=== PATIENT | female | born 1950 | race Caucasian/White ===

== ENCOUNTER 2020-03-24 09:21 | Outpatient (CLI) | payer MEDICARE, BC, SELFPAY ==
[2020-03-24 09:30] VITALS: BMI 25.8
--- NOTE | 2020-03-24 10:13 | ECG_ITS ---
NAME OF STUDY: LEXISCAN SESTAMIBI STRESS TEST INDICATION: Chest Pain; Chest Pressure PROCEDURE: At the baseline, the blood pressure was 150/86 mmHg with a heart rate of 79 bpm. The electrocardiogram showed normal sinus rhythm, leftward axis. Poor anterior R wave progression. The Lexiscan was infused over a period of 20 seconds. A total of 0.4 milligrams of Lexiscan was infused. The stress phase was continued for a total of 5 minutes. Heart rate at the end of the stress phase was 76 bpm with a blood pressure 151/84 mmHg. The EKG at the peak infusion revealed sinus rhythm with no significant ST-T wave changes. Sestamibi was injected 20 seconds after the Lexiscan infusion. Blood pressure at the end of the recovery phase was 145/75 mmHg with a heart rate of 73 beats per minute. CONCLUSION: 1. No significant EKG changes with the LexiScan infusion. 2. No LexiScan induced chest pain or cardiac arrhythmia. 3. Normal blood pressure and heart rate response. 4. Sestamibi/sestamibi perfusion scan pending; see separate report. Electronically Signed On 03-28-2020 9:47:17 CDT by Yareli Camara M.D. [id number]
--- NOTE | 2020-03-24 10:14 | NMCV_ITS ---
NM blaire perf SPECT r/s* [id number] Kaila Randolph Age: 69 Gender: F : 1950 Exam Date: 03/24/2020 10:18 Ordering Phys: Farheen Smith MD Technologist: CAROLA Hawley Exam Location: [facility] Indications: WILL STRESS TEST Please see separate stress test report in [facility] for full findings IMAGE PROTOCOL Rest/Stress 1 Lexiscan Day Radiopharmaceutical Dose (mCi) Administration Site Administered by Rest: Tc-99m 10.9 IV CAROLA Henson Sestamibi Stress:Tc-99m 32.7 IV CAROLA Henson Sestamibi Rest: 24-Mar-2020 60 Discovery 630 Stress: 24-Mar-2020 30 Discovery 630 0.4mg Lexiscan. Images obtained in supine and prone position. SPECT RESULTS Technical Quality: Excellent Raw Data Analysis: Normal Image Corrections: No attenuation or motion correction applied Summed Stress Score: 0 Summed Rest Score: 0 Summed Difference Score: 0 PERFUSION FINDINGS Uniform myocardial tracer uptake with no significant perfusion abnormalities FUNCTIONAL RESULTS (calculated via Gated SPECT) Stress Image LV EF (%): 90 Stress EDV (mL):52 TID: 0.81 Stress ESV (mL):5 FUNCTIONAL FINDINGS: Segmental wall motion analysis revealing no gross wall motion normalities IMPRESSIONS 1. Unremarkable myocardial perfusion imaging 2. Normal LV ejection fraction of 90%. This could be an overestimation because of the technical issues. 3. LV wall motion analysis revealing no gross wall motion abnormalities. 4. Normal LV volume. No significant coronary ischemia, based on the above findings Dr Sherice Gonzalez MD [facility] (Electronically Signed) Final Date: 24 Mar 2020 13:33 S
[2020-03-24 11:02] VITALS: BP 157/83; PULSE 81
[2020-03-24] MEDS: regadenoson 0.4 Mg/5 ml Syringe IVP (11:02)
== END 2020-03-24 09:22 | disposition home or self-care (01) ==
LOC: RAD 09:25 → CDL 09:29
PROVIDERS: PCP Family Medicine; Visit Provider Internal Medicine Cardiovascular Disease
DX: R06.00 Dyspnea, unspecified (principal)
CPT/HCPCS: 78452; 93017; A9500; J2785

== ENCOUNTER 2020-10-31 13:17 | Outpatient (CLI) | payer MEDICARE, BC, SELFPAY ==
--- NOTE | 2020-10-31 13:26 | XR_ITS ---
WS: [id number] Exam: [place] [id number] Date/Time of Exam: 10/31/2020 1:27 PM Reason For Exam: PAIN IN RIGHT ARM Findings: There are no fractures or bone anomalies. The bony elements are in adequate alignment. There are no soft tissue calcifications or infiltration. The joint spaces are smooth and intact. XR/[place] [id number] IMPRESSION: Negative right humerus.
--- NOTE | 2020-10-31 13:26 | XR_ITS ---
WS: [id number] Exam: XR shoulder RT min 2V* [id number] Date/Time of Exam: 10/31/2020 1:27 PM Reason For Exam: PAIN IN RIGHT ARM No fracture or dislocation. Mild degenerative change at the glenohumeral joint and the AC joint. Norm al soft tissues. XR/XR shoulder RT min 2V* [id number] IMPRESSION: 1. Mild degenerative changes. No fracture or other significant finding.
== END 2020-10-31 13:18 | disposition home or self-care (01) ==
LOC: RADWPI 13:25
PROVIDERS: PCP Family Medicine; Visit Provider Family Medicine
DX: M79.601 Pain in right arm (principal)
CPT/HCPCS: 73030; 73060

== ENCOUNTER → 2020-11-14 13:29 | Outpatient (BNVA) | payer MEDICARE, BC, SELFPAY | PROVIDERS: PCP Family Medicine; Visit Provider Specialist | DX: M79.601 Pain in right arm (principal); R20.0 Anesthesia of skin; R20.2 Paresthesia of skin | CPT/HCPCS: 95908 ==

== ENCOUNTER 2020-11-28 07:32 | Outpatient (CLI) | payer MEDICARE, BC, SELFPAY ==
--- NOTE | 2020-11-28 07:42 | NM_ITS ---
WS: [id number] NUCLEAR MEDICINE BONE SCAN Radiopharmaceutical: 24.5 Tc-99m MDP mCi IV Injection site: Left antecubital Postinjection imaging delay: 1 hr CLINICAL INFORMATION: PAIN IN RIGHT ARM COMPARISON: None. FINDINGS: Bone lesions: There are no osseous lesions suspicious for metastatic disease. Soft tissue contours: Normal. Kidneys: Normal. Other findings: Degenerative type uptake in both AC joints and glenohumeral joints. This is greater o n the right. Lumbar scoliosis with degenerative uptake. Degenerative type uptake in the left knee and both ankles. NM/NM bone scan whole body* [id number] IMPRESSION: No evidence of osseous metastatic disease.
== END 2020-11-28 07:33 | disposition home or self-care (01) ==
LOC: RAD 07:38
PROVIDERS: PCP Family Medicine; Visit Provider Family Medicine
DX: M79.601 Pain in right arm (principal)
CPT/HCPCS: 78306; A9561

== ENCOUNTER 2022-06-18 12:11 | Outpatient (CLI) | payer MEDICARE, BC, SELFPAY ==
--- NOTE | 2022-06-18 12:28 | XR_ITS ---
WS: [id number] Exam: XR knee RT 3V* [id number] Date/Time of Exam: 06/18/2022 12:30 PM Reason For Exam: STRUCK BY HORSE/PAIN IN R KNEE No fracture or dislocation. The joint compartments are relatively well maintained. No joint effusion. XR/XR knee RT 3V* [id number] IMPRESSION: 1. No fracture or other significant finding.
--- NOTE | 2022-06-18 12:35 | XR_ITS ---
WS: [id number] Exam: XR foot RT min 3V* [id number] Date/Time of Exam: 06/18/2022 12:36 PM Reason For Exam: STRUCK BY HORSE, INJURY OF RIGHT FOOT No fracture or dislocation. No soft tissue foreign bodies are seen. 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 XR/XR foot RT min 3V* [id number] IMPRESSION: 1. No fracture or dislocation. 2. 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
== END 2022-06-18 12:12 | disposition home or self-care (01) ==
PROVIDERS: PCP Family Medicine; Visit Provider Family Medicine
DX: M25.561 Pain in right knee (principal); S99.921A Unspecified injury of right foot, initial encounter; W55.12XA Struck by horse, initial encounter
CPT/HCPCS: 73562; 73630

== ENCOUNTER → 2022-07-04 14:14 | Outpatient (BNVA) | payer MEDICARE, BC, SELFPAY | PROVIDERS: PCP Family Medicine; Visit Provider Internal Medicine Cardiovascular Disease | DX: I11.0 Hypertensive heart disease with heart failure (principal); I50.9 Heart failure, unspecified; K21.9 Gastro-esophageal reflux disease without esophagitis; I48.91 Unspecified atrial fibrillation; I25.10 Atherosclerotic heart disease of native coronary artery without angina pectoris | CPT/HCPCS: 99214 ==

== ENCOUNTER 2022-08-12 13:25 | Outpatient (CLI) | payer MEDICARE, BC, SELFPAY ==
--- NOTE | 2022-08-12 13:30 | USCV_ITS ---
Kaila Randolph Age: 71 Gender: F : 1950 Exam Date: 08/12/2022 14:05 Ordering Phys: Yareli Camara MD ([email or web address]) Technologist: Noe Salinas Exam Location: [facility] [place] Indication: HISTORY: PROCEDURES: Bilateral duplex Venous Insufficiency study of the Deep and Superficial systems was carried out according to normal protocol with the patient in supine positon for deep system and dependent position for the superficial system. FINDINGS: All deep veins demonstrated compressibility without evidence of intraluminal thrombus or increased echogenicity. Spectral analysis of Doppler signals demonstrates normal response to compression maneuvers indicating patency without obstruction. Reflux determinations were made with the patient in the dependent position, the weight being on the contralateral leg. There is significant reflux in the lt leg below the knee. CONCLUSIONS 1. No evidence of DVT in the above-mentioned identifiable veins. 2. No significant venous reflux was noted either in the deep or in the superficial veins on the right side. 3. On the left side significant venous duplex of greater than 500 ms was noted at the below-knee segment of the greater saphenous vein. However the venous segment was found to be very superficial and 0.39 cm in diameter. No significant reflux in the deep veins Dr Sherice Gonzalez MD [facility] (Electronically Signed) Final Date: 15 August 2022 08:05 S
== END 2022-08-12 13:26 | disposition home or self-care (01) ==
LOC: RAD 13:26
PROVIDERS: PCP Family Medicine; Visit Provider Internal Medicine Cardiovascular Disease
DX: I87.2 Venous insufficiency (chronic) (peripheral) (principal)
CPT/HCPCS: 93970

== ENCOUNTER 2022-08-27 11:32 | Outpatient (CLI) | payer MEDICARE, BC, SELFPAY ==
[2022-08-27 12:01] LABS: Basophils # 0.1 10^3/uL (0.0-0.1); Basophils % 0.9 %; Eosinophils # 0.2 10^3/uL (0.0-0.8); Eosinophils % 3.1 %; Hematocrit 43.3 % (37.0-47.0); Hemoglobin 13.8 g/dL (11.5-15.3); Lymphocytes # 1.7 10^3/uL (0.8-4.8); Mean Corpuscular HGB Conc 31.9 g/dL (30.0-36.0); Mean Corpuscular Hemoglobin 29.6 pg (28.0-34.0); Mean Corpuscular Volume 92.7 fl (81-99); Mean Platelet Volume 9.9 fL (7.4-10.4); Monocytes # 0.6 10^3/uL (0.2-0.9); Monocytes % 8.3 %; Neutrophils # 5.03 10^3/uL (1.8-7.7); Neutrophils % 65.3 %; Nucleated Red Blood Cells % 0 %; Platelet Count 321 10^3/cmm (130-400); Red Blood Count 4.67 10^6/uL (4.1-5.3); Red Cell Distribution Width 12.7 % (12.1-15.1); White Blood Count 7.7 10^3/uL (4.0-10.0)
[2022-08-27 12:40] LABS: Blood Urea Nitrogen 12 mg/dL (8-23); Calcium 9.7 mg/dL (8.5-10.5); Carbon Dioxide 28 mmol/L (22-29); Chloride 103 mmol/L (98-107); Chol HDL Ratio 3.47 mg/dL (0.0-4.40); Cholesterol 257 mg/dL (0-200); Glucose 122 mg/dL (65-115); HDL Cholesterol 74 mg/dL (60-100); LDL Cholesterol Calculated 156 mg/dL (50-129); LDL HDL Ratio 2.11 RATIO (0.00-3.22); Osmolality Calculated 291 mOsm/kg (285-295); Sodium 140 mmol/L (136-145); Triglycerides 133 mg/dL (0-150)
== END 2022-08-27 11:33 | disposition home or self-care (01) ==
LOC: LAB 11:36
PROVIDERS: PCP Family Medicine; Visit Provider Internal Medicine Cardiovascular Disease
DX: I10 Essential (primary) hypertension (principal); I48.0 Paroxysmal atrial fibrillation
CPT/HCPCS: 36415; 80048; 80061; 83735; 84443; 85025; 93005

== ENCOUNTER → 2022-10-14 10:48 | Outpatient (BNVA) | payer MEDICARE, BC, SELFPAY | PROVIDERS: PCP Family Medicine; Visit Provider Internal Medicine Cardiovascular Disease | DX: R42 Dizziness and giddiness (principal); R06.00 Dyspnea, unspecified; R07.9 Chest pain, unspecified; E78.2 Mixed hyperlipidemia; I10 Essential (primary) hypertension; I48.91 Unspecified atrial fibrillation; R00.0 Tachycardia, unspecified; Z87.891 Personal history of nicotine dependence | CPT/HCPCS: 99215 ==

== ENCOUNTER 2022-11-07 11:38 | Outpatient (CLI) | payer MEDICARE, BC, SELFPAY ==
[2022-11-07 12:50] LABS: Basophils # 0.1 10^3/uL (0.0-0.1); Basophils % 0.8 %; Eosinophils # 0.3 10^3/uL (0.0-0.8); Eosinophils % 3.5 %; Hematocrit 43.1 % (37.0-47.0); Hemoglobin 13.5 g/dL (11.5-15.3); Lymphocytes # 1.8 10^3/uL (0.8-4.8); Lymphocytes % 24.9 %; Mean Corpuscular HGB Conc 31.3 g/dL (30.0-36.0); Mean Corpuscular Hemoglobin 29.2 pg (28.0-34.0); Mean Corpuscular Volume 93.3 fl (81-99); Mean Platelet Volume 10.3 fL (7.4-10.4); Monocytes # 0.5 10^3/uL (0.2-0.9); Monocytes % 6.9 %; Neutrophils # 4.59 10^3/uL (1.8-7.7); Neutrophils % 63.8 %; Nucleated Red Blood Cells % 0 %; Platelet Count 323 10^3/cmm (130-400); Red Blood Count 4.62 10^6/uL (4.1-5.3); Red Cell Distribution Width 12.5 % (12.1-15.1); White Blood Count 7.2 10^3/uL (4.0-10.0)
[2022-11-07 12:55] LABS: INR 0.99 (0.83-1.21); Prothrombin Time (Patient) 13.4 Seconds (12.0-15.1)
[2022-11-07 13:12] LABS: Anion Gap 14.5 (5-19); Blood Urea Nitrogen 11 mg/dL (8-23); Carbon Dioxide 28 mmol/L (22-29); Chloride 102 mmol/L (98-107); Glucose 107 mg/dL (65-115); Osmolality Calculated 290 mOsm/kg (285-295); Potassium 4.5 mmol/L (3.5-5.1); Sodium 140 mmol/L (136-145)
== END 2022-11-07 11:39 | disposition home or self-care (01) ==
LOC: LAB 11:42
PROVIDERS: PCP Family Medicine; Visit Provider Internal Medicine Cardiovascular Disease
DX: I47.1 Supraventricular tachycardia (principal); R06.00 Dyspnea, unspecified; R07.9 Chest pain, unspecified; I48.0 Paroxysmal atrial fibrillation
CPT/HCPCS: 36415; 80048; 85025; 85610

== ENCOUNTER 2022-11-08 06:08 | Outpatient (CLI) | payer MEDICARE, BC, SELFPAY ==
[2022-11-08 06:00] VITALS: BP 154/86; PULSE 74; RESP 16; TEMP 36.7; O2SAT 98; BMI 24.6
[2022-11-08] MEDS: cephALEXin 500 mg Capsule 2000 MG PO (07:27)
[2022-11-08] MEDS: lidocaine 1% INJ 20 mL MDV (mL) SUBCUT (07:30)
--- NOTE | 2022-11-08 07:38 | W.PM.OPSUD ---
Surgery/Procedure H&P Update DATE OF PROCEDURE: November 08, 2022 DATE H&P PERFORMED: 10/14/22 H&P UPDATE INFORMATION: I have reviewed H&P completed within last 30 days, I have examined patient prior to procedure and No changes to prior documentation PREOP DIAGNOSIS: Rule out afib. HISTORY OF afib AND PREVIOUS CRYO ABLATIOIN. PRIMARY INDICATION FOR PROCEDURE: History of ZOILA and CVA, recurrent palpitations. NO afib so far on the event monitor PLANNED PROCEDURE: Operation Date: 11/08/22 07:00 Proposed Procedures p Loop Recorder Insertion [id number],I48.91(Not Applicable) - Sherice Gonzalez MD
--- NOTE | 2022-11-08 07:40 | P.OP_ITS ---
Operative Report Date of procedure: November 08, 2022 Pre-op diagnosis: Preop Diagnosis Rule out afib. HISTORY OF afib AND PREVIOUS CRYO ABLATIOIN. Procedure: Date of Procedure: 11/08/2022 Name of the procedure: IMPLANTABLE MANAGEMENT TRAINER INSERTION LOCATION: [facility] REFERRING PROVIDER: Dr. Thao PREOPERATIVE DIAGNOSIS: Recurrent palpitations , history of previous atrial fibrillation and cryoablation. History of CVA x2 POSTOPERATIVE DIAGNOSIS: Same. ESTIMATED BLOOD LOSS: None COMPLICATIONS: None. BRIEF HISTORY: Patient presented with recurrent episodes of palpitations with the previous history of atrial fibrillation and CVA. She had an event monitors which didn't reveal any recurrence of atrial fibrillation episodes. For further evaluation, an implantable environmental monitoring specialist was recommended PROCEDURE: The procedure was explained to the patient in detail with the risks and benefits. The risk of bleeding, hematoma, vascular injury, infection and other concomitant complications were explained in detail. The patient understood this well and consented to proceed. The patient was brought to the Cardiac Survey Instrument Operator. The left side of the chest was cleaned and draped in a sterile fashion. 1% Xylocaine was used as local anesthetic agent. An incision was made in the left fourth intercostal space. Making use of the application device, the implantable environmental monitoring specialist was inserted, subcutaneously. 5 minutes of manual pressure was applied, at the puncture site. The patient tolerated the procedure very well and there were no complications. No bleeding or hematoma. Steri-Strips were applied over the insertion site followed by a sterile dressing. Patient was sent back to the medical floor in stable condition IMPLANTED DEVICE Reveal LINQ Model number: [id number] Serial number: [id number] Make: [email or web address] Parameters: Standard settings were applied( (tachycardia rate of 150 beats per minute , bradycardia rate of 40 beats per minute and a pause of 3 seconds ; symptom recording -4 episodes of 7.5 minutes. Atrial fibrillation detection was turned on- recording threshold of ->6 minutes. Sensitivity was kept at 0.035 mV) The R wave sensing was 2.17 mV
[2022-11-08 08:00] VITALS: BP 145/67; PULSE 69; RESP 18; O2SAT 98
--- NOTE | 2022-11-08 09:38 | PC.NURSE ---
Around 0930: Discharge orders received. Patients dressing over loop recorder insertion site to left upper chest clean, dry, et intact. No drainage or hematoma noted. Vitals stable, no c/o pain or discomfort. Discharge instructions and teaching provided to patient. Patient verbalized understanding of all teaching. Follow-up appointment made with BAUDILIO Tubbs. Discharged patient home via wheelchair in private vehicle.
== END 2022-11-08 06:09 | disposition home or self-care (01) ==
PROVIDERS: PCP Family Medicine; Visit Provider Internal Medicine Cardiovascular Disease
PROC: (CPT 33285; principal; 2022-11-08 07:00)
DX: R00.2 Palpitations (principal); I48.91 Unspecified atrial fibrillation; Z86.73 Personal history of transient ischemic attack (TIA), and cerebral infarction without residual deficits; I10 Essential (primary) hypertension; Z85.3 Personal history of malignant neoplasm of breast; F17.200 Nicotine dependence, unspecified, uncomplicated; E78.2 Mixed hyperlipidemia
CPT/HCPCS: 33285; C1764

== ENCOUNTER 2022-11-13 13:10 | Emergency (ER) | payer MEDICARE, BC, SELFPAY ==
[2022-11-13] VITALS (32 sets, daily range): BP systolic 143–163; BP diastolic 82–91; PULSE 75–109; RESP 9–22; TEMP 37.2; O2SAT 86–98; BMI 24.3
--- NOTE | 2022-11-13 13:31 | ECG_ITS ---
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 Measurements Intervals [place] Rate: 110 P: 0 VT: 0 QRS: -41 QRSD: 84 T: 57 QT: 359 QTc: 488 Interpretive Statements ATRIAL FLUTTER/TACHYCARDIA WITH RAPID VENTRICULAR RESPONSE LEFT AXIS DEVIATION [QRS AXIS < -30] LEFT VENTRICULAR HYPERTROPHY AND ST-T CHANGE [VOLTAGE CRITERIA PLUS ST/T ABNORMALITY] No previous ECG available for comparison Electronically Signed On 11-13-2022 21:43:06 GUIDANCE SERVICES COORDINATOR by Sherice Gonzalez M.D. [id number]
--- NOTE | 2022-11-13 14:15 | CTR_ITS ---
PROCEDURE INFORMATION: Exam: CT Abdomen And Pelvis With Contrast Exam date and time: 11/13/2022 3:29 PM Age: 72 years old Clinical indication: Abdominal pain; Additional info: 3 days of abd pain-hx of celiac a compresson; Afib TECHNIQUE: Imaging protocol: Computed tomography of the abdomen and pelvis with contrast. Radiation optimization: All CT scans at this facility use at least one of these dose optimization techniques: automated exposure control; mA and/or kV adjustment per patient size (includes targeted exams where dose is matched to clinical indication); or iterative reconstruction. Contrast material: OMNI 350; Contrast volume: 100 ml; Contrast route: INTRAVENOUS (IV); COMPARISON: NM bone scan whole body* [id number] 11/28/2020 7:42 AM RADIATION DOSE METRICS: Total DLP (mGy-cm): 416.26 FINDINGS: Lungs: Lung bases are clear. Diaphragm: Small hiatal hernia. Liver: Normal. No mass. Gallbladder and bile ducts: Gallbladder has been removed. There is mild associated dilatation of the common bile duct. Pancreas: Unremarkable. Main pancreatic duct is not significantly dilated. Spleen: Normal. No splenomegaly. Adrenal glands: Normal. No mass. Kidneys and ureters: Normal. No hydronephrosis. Stomach and bowel: There are numerous diverticuli within the sigmoid colon with pronounced inflammatory wall thickening, mild adjacent pericolonic fat stranding and small amount of accompanying pelvic fluid involving long segment of distal sigmoid colon likely secondary to acute diverticulitis. There is no abscess collection. Mild-moderate degree of retained stool involving remainder of the large bowel. Appendix: No evidence of appendicitis. Intraperitoneal space: See Stomach and bowel finding. Vasculature: Unremarkable. No abdominal aortic aneurysm. Lymph nodes: Few small pelvic lymph nodes adjacent to the sigmoid colon presumed reactive in nature. No enlarged lymph nodes. Urinary bladder: Unremarkable as visualized. Reproductive: Uterus has been removed. Bones/joints: There is mild scoliosis with moderate multilevel asymmetric degenerative changes throughout the lumbar spine. Soft tissues: Unremarkable. CT/CT abdomen pelvis w con* [id number] IMPRESSION: 1. Findings consistent with acute sigmoid diverticulitis with small amount of accompanying pelvic ascites. Recommend additional follow-up study in a few weeks to document improvement/resolution. 2. Additional nonemergent findings as above.
--- NOTE | 2022-11-13 14:16 | W.ED.ABDPA2 ---
HPI - Abdominal Pain General: Chief Complaint: Abdominal Pain Stated Complaint: abd pain Time Seen by Provider: 11/13/22 13:58 Source: patient Mode of arrival: ambulatory Limitations: no limitations History of Present Illness: This patient presents to our emergency department because of concerns about abdominal cramping and discomfort that has been present approximately 3 days. States she was in her normal state of health and had a loop recorder implanted under local anesthesia on Friday and then Friday started developing some upper abdominal cramping that extended down into her lower abdomen and is kind of present intermittently since that time it is now mostly in her upper abdomen. She has had a prior Bc fundoplication and does not vomit but does feel nausea. She has had a small stool over the weekend and then had a normal bowel movement on Friday timeframe with no blood or black tarry stools. She is had a long history of intermittent GI symptoms that of been attributed to many possible diagnoses but no concrete diagnosis. Such diagnoses as irritable bowel, celiac artery compression, gastroparesis etc. She is not a diabetic. She states that she has had no food intolerance etc. She is also had a prior cholecystectomy as well as a hysterectomy. No dysuria, hematuria etc. She also has intermittent atrial fibrillation and takes a DOAC for that condition for stroke risk reduction MD elicited complaint: abdominal pain Quality: cramping and aching Exacerbating factors: nothing Relieving factors: nothing Associated Symptoms: Reports nausea; Denies chills, dysuria, fever(s), hematochezia, melena, syncope and vomiting Review of Systems Const: Denies: fever(s) or chills Eyes: Denies: change in vision ENMT: Denies: throat pain, odynophagia, nasal discharge or nasal congestion Card: Denies: chest pain, lightheadedness, syncope or pre-syncope Resp: Denies: dyspnea, productive cough, non-productive cough, wheezing or stridor GI: Reports: abdominal pain and nausea; Denies: vomiting, hematochezia or melena : Denies: flank pain, difficulty voiding, dysuria or urinary frequency Musc: Denies: neck pain, back pain, extremity pain or extremity swelling Skin/Breast: Denies: rash Endo: Denies: polyuria, polydipsia or tired all the time [facility] PFSH: Medical History Atrial fibrillation Breast cancer HTN (hypertension) Hyperlipidemia Orthostatic hypotension after exercise Osteoarthritis Racing heart beat Restless leg syndrome Venous reflux Surgical History H/O mastectomy History of cholecystectomy History of hysterectomy Hx of breast implants, bilateral S/P ablation of atrial fibrillation Family History Father CAD (coronary artery disease) Sister Atrial septal defect with pacemaker Social History Smoking and tobacco status: former smoker Alcohol intake: never Physical Exam Narrative: EXAM NARRATIVE: She appears comfortable and goal-directed in her answers to questions. Const: COMMON NORMALS: no acute distress and patient oriented x3 GENERAL APPEARANCE: cooperative and comfortable ORIENTATION/CONSCIOUSNESS: Yes awake HENMT: COMMON NORMALS: normocephalic, Normal nasal mucous membranes and turbinates present, moist oral mucous membranes and oropharynx normal HEAD & SCALP: normocephalic NOSE: Normal nasal mucous membranes and turbinates present Eye: COMMON NORMALS: Equal, round and reactive pupils present, EOMs intact bilaterally and conjunctivae normal CONJUNCTIVA: Yes conjunctivae normal PUPIL: Yes Equal, round and reactive pupils present Neck/C-Spine: COMMON NORMALS: full ROM, no JVD and No carotid bruits Chest: COMMONS NORMALS: normal inspection of the chest and normal palpation of entire chest wall Resp: COMMON NORMALS: normal respiratory effort, No retractions and clear to auscultation bilaterally EFFORT & INSPECTION: Yes able to speak in complete sentences AUSCULTATION: clear to auscultation bilaterally Cardio: COMMON NORMALS: no JVD, regular rate and Peripheral pulses 2+ throughout RATE: regular rate HEART SOUNDS: Murmur heart sound present PERIPHERAL PULSES: Peripheral pulses 2+ throughout GI: COMMON NORMALS: Normal to inspection, nondistended, normoactive bowel sounds present, Soft to palpation, non-tender and no masses PALPATION: Yes Soft to palpation : COMMON NORMALS: Yes no CVA tenderness BLADDER/KIDNEY EXAM: Yes no CVA tenderness Back/Pelvis: COMMON NORMALS: no CVA tenderness, thoracic and lumbar spine normal to inspection and no thoracic nor lumbar tenderness Extremity: COMMON NORMALS: normal to inspection, full ROM, no calf tenderness and no pedal edema Neuro: COMMON NORMALS: patient oriented x3, moves all extremities, no focal motor deficits and no sensory deficits noted CRANIAL NERVES: Yes CN normal except as noted Psych: COMMON NORMALS: mental status grossly normal Skin: COMMON NORMALS: no rashes or lesions noted GENERAL SKIN EXAM: no rashes or lesions noted Course Reevaluation(s): Reevaluation #1: Patient actually states she feels better at the time of the examination and she has for the last 3 days. We discussed engaging in a work-up versus watchful waiting but because of her risk factors we agreed that we will proceed with an evaluation in the emergency department. Time: 14:22 Vital Signs: Vital signs: Vital Signs Temperature 99.0 F 11/13/22 13:22 Pulse Rate 76 11/13/22 15:55 Respiratory Rate 12 11/13/22 15:55 Blood Pressure 163/91 11/13/22 15:30 Pulse Oximetry 94 11/13/22 15:55 Oxygen Delivery Me thod 11/13/22 13:22 MDM - Abdominal Pain Medical Decision Making Patient presented to the emergency department with approximately 3-day history of abdominal cramping and discomfort that she relates to somewhat similar to symptoms she has had in the past years but not like that she is experienced with certain conditions such as renal colic etc. She is not had any associated fevers nausea vomiting diarrhea blood in her stools etc. She has other concomitant illnesses and to include atrial fibrillation which made the possibility of such things as ischemic colitis etc. a possibility. Her clinical examination is reassuring without any evidence of peritoneal signs and she did not display any other clinical findings of concern. Work-up to include imaging in addition to other ancillary studies which revealed evidence of sigmoid diverticulitis without any worrisome findings such as perforation, abscess etc. She is clinically stable with controlled ventricular response on her atrial fibrillation, afebrile, no other findings to suggest sepsis, surgical abdomen etc. She is appropriate to be managed as an outpatient which she was readily agreeable to. He is being discharged to such management in a stable condition with follow-up and return precautions were reviewed. Differential Diagnosis Likely diverticulitis; Unlikely constipation, pancreatitis or small bowel obstruction Medical Records I reviewed the patient's medical records. Lab Data I reviewed the patient's lab results. 11/13/22 14:24 11/13/22 14:24 Labs/Radiology: Radiology Impressions Abdomen/Pelvis CT 11/13/22 14:15 IMPRESSION: 1. Findings consistent with acute sigmoid diverticulitis with small amount of accompanying pelvic ascites. Recommend additional follow-up study in a few weeks to document improvement/resolution. 2. Additional nonemergent findings as above. Laboratory Results WBC 15.6 10^3/uL (4.0-10.0) H 11/13/22 14:24 RBC 4.63 10^6/uL (4.1-5.3) 11/13/22 14:24 Hgb 13.5 g/dL (11.5-15.3) 11/13/22 14:24 Hct 42.0 % (37.0-47.0) 11/13/22 14:24 MCV 90.7 fl (81-99) 11/13/22 14:24 MCH 29.2 pg (28.0-34.0) 11/13/22 14:24 MCHC 32.1 g/dL (30.0-36.0) 11/13/22 14:24 RDW 12.4 % (12.1-15.1) 11/13/22 14:24 Plt Count 325 10^3/cmm (130-400) 11/13/22 14:24 MPV 10.1 fL (7.4-10.4) 11/13/22 14:24 Neut % (Auto) 83.3 % 11/13/22 14:24 Lymph % (Auto) 6.5 % 11/13/22 14:24 Cole % (Auto) 9.4 % 11/13/22 14:24 Eos % (Auto) 0.1 % 11/13/22 14:24 Baso % (Auto) 0.3 % 11/13/22 14:24 Neut # (Auto) 13.01 10^3/uL (1.8-7.7) H 11/13/22 14:24 Lymph # (Auto) 1.0 10^3/uL (0.8-4.8) 11/13/22 14:24 Cole # (Auto) 1.5 10^3/uL (0.2-0.9) H 11/13/22 14:24 Eos # (Auto) 0.0 10^3/uL (0.0-0.8) 11/13/22 14:24 Baso # (Auto) 0.0 10^3/uL (0.0-0.1) 11/13/22 14:24 Nucleated RBC % (auto) 0 % 11/13/22 14:24 Nucleated RBCs # 0.0 /100WBC 11/13/22 14:24 Sodium 134 mmol/L (136-145) L 11/13/22 14:24 Potassium 3.6 mmol/L (3.5-5.1) 11/13/22 14:24 Chloride 97 mmol/L (98-107) L 11/13/22 14:24 Carbon Dioxide 26 mmol/L (22-29) 11/13/22 14:24 Anion Gap 14.6 (5-19) 11/13/22 14:24 BUN 11 mg/dL (8-23) 11/13/22 14:24 Creatinine 0.6 mg/dL (0.5-0.9) 11/13/22 14:24 GFR Calculation Not Reportable 11/13/22 14:24 Glucose 158 mg/dL (65-115) H 11/13/22 14:24 Calculated Osmolality 281 mOsm/kg (285-295) L 11/13/22 14:24 Calcium 9.1 mg/dL (8.5-10.5) 11/13/22 14:24 Magnesium 1.9 mg/dL (1.7-2.3) 11/13/22 14:24 Total Bilirubin 0.8 mg/dL (0.15-1.2) 11/13/22 14:24 AST 19 U/L (0-32) 11/13/22 14:24 ALT 13 U/L (0-33) 11/13/22 14:24 Alkaline Phosphatase 171 U/L (35-105) H 11/13/22 14:24 Total Protein 7.4 g/dL (6.6-8.7) 11/13/22 14:24 Albumin 4.1 g/dL (3.5-5.2) 11/13/22 14:24 Globulin 3.3 g/dL (1.3-4.6) 11/13/22 14:24 Lipase 14 U/L (13-60) 11/13/22 14:24 TSH 1.76 uIU/mL (0.27-4.20) 11/13/22 14:24 EKG Data EKG 1: I personally reviewed and interpreted this EKG as follows: Interpretation: Contemporaneous review of EKG reveals atrial fibrillation with a rapid ventricular response of 110 bpm. Normal axis. No acute ST-T wave changes noted at this time. Discharge Plan Discharge Patient Disposition: Home Clinical Impression: Diverticulitis of sigmoid colon, Atrial fibrillation Condition: Stable Prescriptions: New amoxicillin-pot clavulanate 875-125 mg tablet 1 tab PO BID Qty: 14 0RF No Action Eliquis 5 mg tablet 5 mg PO BID Qty: 30 6RF Hold Instructions: Resume on 11/09/22. May start taking the medicine tomorrow evening pramipexole [Mirapex] 0.5 mg tablet 0.5 mg PO DAILY metoprolol succinate 25 mg tablet extended release 24 hr 12.5 mg PO DIRECTED Rx Instructions: May take additional 12.5mg PRN desloratadine [Clarinex] 5 mg tablet 5 mg PO DAILY PRN (Reason: Allergy Symptoms) multivitamin Tablet 1 tab PO DAILY cyanocobalamin (vitamin B-12) 1,000 mcg tablet extended release 1,000 mcg PO Q2D cholecalciferol (vitamin D3) 125 mcg (5,000 unit) capsule 5,000 unit PO DAILY famotidine 20 mg tablet 20 mg PO BID PRN (Reason: Indigestion) tramadol 50 mg tablet 50 mg PO BID calcium citrate 250 mg calcium tablet 250 mg PO DAILY magnesium 250 mg tablet 250 mg PO DAILY Xifaxan 550 mg tablet 550 mg PO TID Discharge Orders: Discharge ED (Routine); Ordered 11/13/22 Ordered By: Jani Stevens Referrals: Farheen Smith MD [Primary Care Provider] - 7-10 days Discharge Diet: Advance as tolerated and Full LIquid Discharge Activity: Increase activity as tolerated Patient Instructions: Opioid Safety, Pain Management Activity Restrictions/Additional Instructions: As we discussed your evaluation revealed that you have diverticulitis which is inflammation of the wall the colon. We have prescribed an antibiotic to help treat this condition. We recommend sticking with a full liquid diet for the next 24-36 hours and then advancing her diet as you tolerate it. We do would advise avoiding foods such as popcorn, seeds, nuts or other small nonsoluble nondigestible particles which may cause more problems with her diverticular disease. Should you develop increasing abdominal pain, fevers or other concerns return to this or the nearest emergency department. Coding Level of Care Code ED Brush Hand for Maris Brar Exam Comprehensive
[2022-11-13] MEDS: sodium chloride 0.9% 500 ML IV (14:31)
[2022-11-13 14:38] LABS: Basophils % 0.3 %; Eosinophils % 0.1 %; Hemoglobin 13.5 g/dL (11.5-15.3); Lymphocytes % 6.5 %; Mean Corpuscular HGB Conc 32.1 g/dL (30.0-36.0); Mean Corpuscular Hemoglobin 29.2 pg (28.0-34.0); Mean Corpuscular Volume 90.7 fl (81-99); Mean Platelet Volume 10.1 fL (7.4-10.4); Monocytes # 1.5 10^3/uL (0.2-0.9); Monocytes % 9.4 %; Neutrophils # 13.01 10^3/uL (1.8-7.7); Neutrophils % 83.3 %; Nucleated Red Blood Cells % 0 %; Platelet Count 325 10^3/cmm (130-400); Red Blood Count 4.63 10^6/uL (4.1-5.3); Red Cell Distribution Width 12.4 % (12.1-15.1); White Blood Count 15.6 10^3/uL (4.0-10.0)
[2022-11-13] MEDS: diphenhydrAMINE 50 mg/mL SDV 1mL IVP (14:56)
[2022-11-13 15:12] LABS: Alanine Aminotransferase 13 U/L (0-33); Albumin Level 4.1 g/dL (3.5-5.2); Alkaline Phosphatase 171 U/L (35-105); Anion Gap 14.6 (5-19); Aspartate Amino Transferase 19 U/L (0-32); Blood Urea Nitrogen 11 mg/dL (8-23); Calcium 9.1 mg/dL (8.5-10.5); Carbon Dioxide 26 mmol/L (22-29); Chloride 97 mmol/L (98-107); Creatinine Clr Calc Pharmacy 54.9367; Globulin 3.3 g/dL (1.3-4.6); Glucose 158 mg/dL (65-115); Lipase 14 U/L (13-60); Magnesium 1.9 mg/dL (1.7-2.3); Osmolality Calculated 281 mOsm/kg (285-295); Potassium 3.6 mmol/L (3.5-5.1); Sodium 134 mmol/L (136-145); Thyroid Stimulating Hormone 1.76 uIU/mL (0.27-4.20); Total Bilirubin 0.8 mg/dL (0.15-1.2); Total Protein 7.4 g/dL (6.6-8.7)
[2022-11-13] MEDS: iohexol 350 mg/mL 500 mL Btl (per mL) IV (15:34)
== END 2022-11-13 16:49 | disposition home or self-care (01) ==
PROVIDERS: Emergency Provider Emergency Medicine; PCP Family Medicine
DX: K57.32 Diverticulitis of large intestine without perforation or abscess without bleeding (principal); I48.91 Unspecified atrial fibrillation; Z79.01 Long term (current) use of anticoagulants; I10 Essential (primary) hypertension; E78.5 Hyperlipidemia, unspecified; Z87.891 Personal history of nicotine dependence; Z85.3 Personal history of malignant neoplasm of breast
CPT/HCPCS: 74177; 80053; 83690; 83735; 84443; 85025; 93005; 96374; 96375; 99285; J1200; J2920; J7040; Q9967

== ENCOUNTER → 2022-11-14 15:09 | Outpatient (BNVA) | payer MEDICARE, BC, SELFPAY | PROVIDERS: PCP Family Medicine; Visit Provider Nurse Practitioner Family | DX: Z95.818 Presence of other cardiac implants and grafts (principal) | CPT/HCPCS: 99213 ==

== ENCOUNTER → 2022-12-25 12:54 | Outpatient (BNVA) | payer MEDICARE, BC, SELFPAY | PROVIDERS: PCP Family Medicine; Visit Provider Nurse Practitioner Family | DX: I47.1 Supraventricular tachycardia (principal); R42 Dizziness and giddiness; Z87.891 Personal history of nicotine dependence | CPT/HCPCS: 99214 ==

== ENCOUNTER 2022-12-31 12:06 | Outpatient (CLI) | payer MEDICARE, BC, SELFPAY ==
--- NOTE | 2022-12-31 12:30 | USCV_ITS ---
Kaila Randolph Age: 72 Gender: F : 1950 Exam Date: 12/31/2022 12:31 Ordering Phys: Maci Dow Technologist: Ruiz Huff Exam Location: [facility] [place] Indication: dizziness BP: 128 / 82 HR: 73 Rhythm: Sinus Technical Quality: Adequate MEASUREMENTS (Male / Female) Normal Values 2D ECHO LV Diastolic Diameter PLAX 3.8 cm 4.2 - 5.9 / 3.9 - 5.3 cm LV Systolic Diameter PLAX 2.3 cm IVS Diastolic Thickness 0.9 cm 0.6 - 1.0 / 0.6 - 0.9 cm IVS Systolic Thickness 1.2 cm LVPW Diastolic Thickness 1.1 cm 0.6 - 1.0 / 0.6 - 0.9 cm LVPW Systolic Thickness 1.6 cm LVOT Diameter 2.0 cm LV Ejection Fraction 2D Teich 71.9 % LV Ejection Fraction MOD 2C 63.4 % LV Ejection Fraction 2C AL 65.1 % LA Diameter 3.0 cm LA Width 3.1 cm LA Height 4.0 cm RA Width 2.6 cm RA Height 4.4 cm Aorta at Sinotubular Diameter 2.0 cm IVC Diameter 1.9 cm M-MODE Aortic Annulus Diameter 2.3 cm LA Ao Ratio MM 1.3 MV E Point Septal Separation 0.6 cm DOPPLER AV Peak Velocity 152.3 cm/s LVOT Peak Velocity 118.0 cm/s AV Area Cont Eq vti 2.4 cm squared AV Area Cont Eq pk 2.5 cm squared MV Peak Velocity 103.0 cm/s MV Area PHT 6.5 cm squared Mitral E to A Ratio 0.7 MV E' Velocity 38.5 cm/s Mitral E to MV E' Ratio 6.2 Mitral E to LV E' Lateral Ratio 5.6 Mitral E to LV E' Septal Ratio 7.0 TR Peak Velocity 139.3 cm/s TR Peak Gradient 7.8 mmHg TR Mean Velocity 107.7 cm/s TR Mean Gradient 5.5 mmHg TR Velocity Time Integral 28.4 cm Right Atrial Pressure 3.0 mmHg Pulmonary Artery Systolic Pressu 10.8 mmHg PV Peak Velocity 97.0 cm/s RV Acceleration Time 0.1 s RV Ejection Time 0.3 s RV AcT/ET 0.3 FINDINGS Left Ventricle Normal left ventricular size and systolic function, EF 63 %. Mild left ventricular hypertrophy. Grade I/IV diastolic dysfunction (abnormal relaxation filling pattern), normal to mildly elevated filling pressures. Right Ventricle The right ventricle is normal in size and function. Right Atrium The right atrium is normal in size. Left Atrium The left atrium is normal in size. Mitral Valve Trace mitral valve regurgitation. Aortic Valve Thickened aortic valve. Tricuspid Valve Mild tricuspid valve regurgitation. Pulmonic Valve Trace pulmonary valve regurgitation. Pericardium No pericardial effusion. Aorta Normal aortic annulus size. IVC Inferior vena cava not visualized. CONCLUSIONS Normal left ventricular size and systolic function, EF 63 %. Mild left ventricular hypertrophy. Grade I/IV diastolic dysfunction (abnormal relaxation filling pattern), normal to mildly elevated filling pressures. Thickened aortic valve. Mild tricuspid valve regurgitation. Trace pulmonary valve regurgitation. Estimated pulmonary artery peak systolic pressure, is within normal limits There is no pericardial effusion. There are no intracardiac masses. Dr Sherice Gonzalez MD FAC (Electronically Signed) Final Date: 01 January 2023 10:19 S
== END 2022-12-31 12:07 | disposition home or self-care (01) ==
PROVIDERS: PCP Family Medicine; Visit Provider Nurse Practitioner Family
DX: I47.1 Supraventricular tachycardia (principal); R42 Dizziness and giddiness; I08.2 Rheumatic disorders of both aortic and tricuspid valves
CPT/HCPCS: 93306

== ENCOUNTER 2023-01-15 09:40 | Outpatient (CLI) | payer MEDICARE, BC, SELFPAY ==
--- NOTE | 2023-01-15 09:55 | CT_ITS ---
WS: [id number] CT ABDOMEN AND PELVIS NONCONTRAST HISTORY: ABDOMINAL PAIN, follow-up diverticulitis. TECHNIQUE: Imaging performed through the abdomen and pelvis. Coronal and sagittal reformats are submi tted. All CT scans at [facility] use at least one of these dose optimization techniques: auto mated exposure control; mA and/or kV adjustment per patient size (includes targeted exams where dose is matched to clinical indication); or iterative reconstruction. DLP: 444.07 mGy.cm COMPARISON: 11/13/2022 Lower thorax: Lung bases are clear. Visualized heart is normal. Small hiatal hernia. Liver: Normal size liver. No mass or bile duct dilatation. Gallbladder: Prior cholecystectomy. Mild physiologic dilatation common bile duct at 8 mm. Similar to the prior study. Pancreas: Normal size and attenuation. Normal pancreatic duct. No pancreatitis or mass. Spleen: Normal. Adrenal glands: Normal. No mass. Right kidney: Normal size kidney with no mass or hydronephrosis. Left kidney: Normal size kidney with no mass or hydronephrosis. Aorta: Mild atherosclerosis aorta. No aneurysm. No free fluid or free air. Lymph nodes in the pelvis have improved. No adenopathy. GI tract: Small hiatal hernia. Stomach is nondistended. No small bowel obstruction. Normal appendix. Numerous diverticula in the descending and sigmoid colon. Significant interval improvement of the acu te diverticulitis noted on 11/13/2022. There is continued wall thickening of the sigmoid colon which i s probably chronic and related to prior episodes of diverticulitis with healing. Abdominal wall: Small umbilical hernia contains fat only. Pelvis: Prior hysterectomy. Negative urinary bladder. Osseous structures: LEFT degenerative curvature lumbar spine with advanced degenerative disc disease. CT/CT abdomen pelvis wo con [id number] IMPRESSION: 1. Significant improvement in acute diverticulitis described on 11/13/2022. No free air or abscess. 2. Innumerable sigmoid diverticula with chronic wall thickening and narrowing of the lumen. 3. Negative appendix. 4. Improved small lymph nodes surrounding the sigmoid. 5. Prior cholecystectomy.
== END 2023-01-15 09:41 | disposition home or self-care (01) ==
LOC: RAD 09:46
PROVIDERS: PCP Family Medicine; Visit Provider Family Medicine
DX: K57.30 Diverticulosis of large intestine without perforation or abscess without bleeding (principal)
CPT/HCPCS: 74176

== ENCOUNTER → 2023-05-01 14:46 | Outpatient (BNVA) | payer MEDICARE, BC, SELFPAY | PROVIDERS: PCP Family Medicine; Visit Provider Internal Medicine Cardiovascular Disease | DX: R06.00 Dyspnea, unspecified (principal); I47.1 Supraventricular tachycardia; I48.91 Unspecified atrial fibrillation; I10 Essential (primary) hypertension; R42 Dizziness and giddiness; E78.2 Mixed hyperlipidemia; Z87.891 Personal history of nicotine dependence; Z79.01 Long term (current) use of anticoagulants | CPT/HCPCS: 99214 ==

== ENCOUNTER 2023-09-30 15:36 | Outpatient (CLI) | payer MEDICARE, BC, SELFPAY ==
--- NOTE | 2023-09-30 | MR_ITS ---
WS: [id number] MRI LUMBAR SPINE NONCONTRAST HISTORY: lumbar pain, rt hip pain COMPARISON: 06/06/2009 TECHNIQUE: Sagittal and axial multisequence imaging is submitted. Osteophyte and disc encroachment upon the cervical cord at C5-6 and C6-7. Increase in thoracic kyphos is. Moderate LEFT scoliosis lumbar spine with asymmetric disc space narrowing. Reactive marrow edema in the endplates of L2 and L3. No fractures. Disc spaces are all narrowed and desiccated, most significant at L2-3 and L3-4 and L5-S1. Conus terminates normally at L1-2 disc level. T12-L1: Annular disc bulging asymmetric to the LEFT. Mild LEFT foraminal narrowing. L1-L2: Annular disc bulging with osteophytic ridging encroaching upon the ventral thecal sac and suba rticular recesses. Asymmetric disc bulging to the LEFT. Mild central stenosis with moderate bilateral subarticular recess and bilateral foraminal stenosis. L2-L3: Diffuse annular disc bulging encroaching upon the ventral thecal sac. Bilateral facet joint ar thritis, RIGHT greater than LEFT. Moderate central, bilateral subarticular recess and RIGHT foraminal stenosis. Encroachment upon the traversing L3 nerve roots. L3-L4: Annular disc bulging, osteophytic ridging and facet arthritis. Moderate central, bilateral sub articular recess and foraminal stenosis. L4-L5: Annular disc bulging with severe ligamentum flavum hypertrophy and facet arthritis. Trefoil ap pearance of the thecal sac. Encroachment upon the L4 and L5 nerve roots. Moderate to severe central, bilateral subarticular recess and foraminal stenosis. L5-S1: Diffuse annular disc bulging with marked facet and ligamentum flavum hypertrophy. Mild LEFT fo raminal stenosis. No retroperitoneal abnormality. IMPRESSION: 1. Significant progression of degenerative disc disease and scoliosis since 2008. 2. Moderate LEFT curvature lumbar spine with asymmetric disc space narrowing. 3. Multilevel areas of stenosis throughout the lumbar spine due to combination of osteophytosis, scol iosis, and disc and facet arthritis. 4. L4-5: Moderate to severe central, bilateral subarticular recess and foraminal stenosis. 5. L3-4: Moderate central, bilateral subarticular recess and foraminal stenosis. 6. L2-3: Moderate central, bilateral subarticular recess and RIGHT foraminal stenosis. Disc and osteo phyte encroachment upon the traversing L3 nerve roots. 7. L1-2: Mild central stenosis with moderate bilateral subarticular recess and foraminal stenosis.
== END 2023-09-30 15:37 | disposition home or self-care (01) ==
LOC: RAD 15:37
PROVIDERS: PCP Family Medicine; Visit Provider Family Medicine
DX: M51.36 Other intervertebral disc degeneration, lumbar region (principal); M25.551 Pain in right hip; M48.061 Spinal stenosis, lumbar region without neurogenic claudication; M25.78 Osteophyte, vertebrae
CPT/HCPCS: 72148

== ENCOUNTER 2023-12-04 13:41 | Outpatient (CLI) | payer MEDICARE, BC, SELFPAY ==
--- NOTE | 2023-12-04 13:49 | XR_ITS ---
WS: [id number] DEXA (DUAL ENERGY X-RAY ABSORPTIOMETRY) Bone mineral density was performed using a [employer] machine. HISTORY: OSTEOPOROSIS COMPARISON: None available. Lumbar spine BMD (L1-L4): 1.311 g/cm2 T score: 1.1 Z score: 3.0 Total hip BMD: Left: 0.867 g/cm2. T score: -1.1 Z score: 0.7 Right: 0.926 g/cm2. T score: -0.7 Z score: 1.2 10 year probability of a major osteoporotic fracture is 12.9%. Moderate LEFT scoliosis lumbar spine. IMPRESSION: OSTEOPENIA based upon the WHO classification for females.
== END 2023-12-04 13:42 | disposition home or self-care (01) ==
LOC: RAD 13:41
PROVIDERS: PCP Family Medicine; Visit Provider Registered Nurse
DX: M81.0 Age-related osteoporosis without current pathological fracture (principal); M41.9 Scoliosis, unspecified
CPT/HCPCS: 77080

== ENCOUNTER 2024-09-30 18:13 | Emergency (ER) | payer MEDICARE, BC, SELFPAY ==
[2024-09-30 18:20] VITALS: BP 164/87; PULSE 97; TEMP 36.7; O2SAT 97; BMI 24.7
[2024-09-30 19:22] LABS: Basophils # 0.1 10^3/uL (0.0-0.1); Basophils % 1.1 %; Eosinophils # 0.3 10^3/uL (0.0-0.8); Eosinophils % 3.9 %; Hematocrit 40.3 % (36-47); Lymphocytes # 1.8 10^3/uL (0.8-4.8); Lymphocytes % 21.7 %; Mean Corpuscular HGB Conc 31.3 g/dL (30-55); Mean Corpuscular Hemoglobin 28.6 pg (27-33); Mean Corpuscular Volume 91.4 fl (85-98); Mean Platelet Volume 9.7 fL (7.4-10.4); Monocytes # 0.6 10^3/uL (0.2-0.9); Monocytes % 6.5 %; Neutrophils # 5.66 10^3/uL (1.8-7.7); Neutrophils % 66.6 %; Nucleated Red Blood Cells % 0 %; Platelet Count 326 10^3/cmm (157-399); Red Blood Count 4.41 10^6/uL (3.85-5.65); Red Cell Distribution Width 12.8 % (12.1-15.1); White Blood Count 8.49 10^3/uL (3.29-11.43)
[2024-09-30 19:34] LABS: Alanine Aminotransferase 13 U/L (0-33); Albumin Level 4.1 g/dL (3.5-5.2); Alkaline Phosphatase 186 U/L (35-105); Aspartate Amino Transferase 20 U/L (0-32); Blood Urea Nitrogen 13 mg/dL (8-23); Calcium 9.6 mg/dL (8.5-10.5); Carbon Dioxide 28 mmol/L (22-29); Chloride 100 mmol/L (98-107); Creatinine Clr Calc Pharmacy 41.2186; Globulin 2.6 g/dL (1.3-4.6); Glucose 123 mg/dL (65-115); Lipase 28 U/L (13-60); Osmolality Calculated 287 mOsm/kg (285-295); Sodium 138 mmol/L (136-145); Total Bilirubin 0.3 mg/dL (0.15-1.2); Total Protein 6.7 g/dL (6.6-8.7)
--- NOTE | 2024-09-30 20:12 | CTR_ITS ---
PROCEDURE INFORMATION: Exam: CT Abdomen And Pelvis Without Contrast Exam date and time: 09/30/2024 8:35 PM Age: 74 years old Clinical indication: Abdominal pain; Prior surgery; Surgery date: 6+ months; Surgery type: Hysto, gb hip; Additional info: Luq pain TECHNIQUE: Imaging protocol: Computed tomography of the abdomen and pelvis without contrast. Radiation optimization: All CT scans at this facility use at least one of these dose optimization techniques: automated exposure control; mA and/or kV adjustment per patient size (includes targeted exams where dose is matched to clinical indication); or iterative reconstruction. COMPARISON: CT abdomen pelvis wo con [id number] 01/15/2023 10:33 AM RADIATION DOSE METRICS: Total DLP (mGy-cm): 475.87 FINDINGS: Lungs: Lingular atelectasis versus minimal infiltrate. Emphysematous changes. Diaphragm: Moderate hiatal hernia. Liver: Normal. No mass. Gallbladder and biliary ducts: Cholecystectomy. Pancreas: Normal. No ductal dilation. Spleen: Normal. No splenomegaly. Adrenal glands: Normal. No mass. Kidneys and ureters: Normal. No hydronephrosis. Stomach and bowel: Mildly prominent fluid in the stomach and small bowel, please correlate for a gastroenteritis. Moderate constipation. Diverticulosis without diverticulitis. Minimal edema about the mid sigmoid colon in the area of several diverticula may reflect a mild diverticulitis. Appendix: No evidence of appendicitis. Intraperitoneal space: Unremarkable. No free air. No significant fluid collection. 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 Lymph nodes: Unremarkable. No enlarged lymph nodes. Urinary bladder: Unremarkable as visualized. Reproductive: Unremarkable as visualized. Bones/joints: Lumbar spine levoscoliosis. Right hip arthroplasty changes. Soft tissues: Unremarkable. CT/CT kidney stone [id number] IMPRESSION: 1. Mildly prominent fluid in the stomach and small bowel, please correlate for a gastroenteritis. 2. Minimal edema about the mid sigmoid colon in the area of several diverticula may reflect a mild diverticulitis. 3. Right hip arthroplasty changes. 4. 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 5. Lingular atelectasis versus minimal infiltrate. 6. Emphysematous changes. 7. Moderate hiatal hernia. 8. Cholecystectomy. 9. Moderate constipation. 10. Diverticulosis without diverticulitis.
--- NOTE | 2024-09-30 20:12 | XRR_ITS ---
PROCEDURE INFORMATION: Exam: XR Chest Exam date and time: 09/30/2024 8:22 PM Age: 74 years old Clinical indication: Pain; Intercostal; Additional info: Cp TECHNIQUE: Imaging protocol: Radiologic exam of the chest. Views: 1 view. COMPARISON: NM bone scan whole body* [id number] 11/28/2020 7:42 AM FINDINGS: Lungs: Emphysematous changes. Left lower lobe atelectasis versus infiltrate. Pleural spaces: Unremarkable. No pleural effusion. No pneumothorax. Heart/Mediastinum: Cardiomegaly. Bones/joints: Unremarkable. XR/XR chest 1V portable [id number] IMPRESSION: 1. Emphysematous changes. 2. Left lower lobe atelectasis versus infiltrate. 3. Cardiomegaly.
--- NOTE | 2024-09-30 20:13 | ED_ITS ---
Documented by User: Martha Huffman MD 09/30/24 20:15 HPI - Abdominal Pain 2 General: Chief Complaint: Abdominal Pain Stated Complaint: had a pop and spasms in upper abd Time Seen by Provider: 09/30/24 20:05 Source: patient Mode of arrival: ambulatory Limitations: no limitations History of Present Illness: 74-year-old female states that she bent over to pick something up yesterday and felt a pop in her left upper abdomen she states she been having left upper abdomen pain since and it is worse with movement and palpation. States pain sharp in nature rates it a 5 out of 10 currently it is improved with rest denies any vomiting or diarrhea denies any fever Associated Symptoms: Denies chills, diarrhea, dysuria, fever(s), nausea and vomiting Related Data Home Medications Medication Instructions Recorded Confirmed cholecalciferol (vitamin D3) 125 5,000 unit PO DAILY 01/05/20 01/20/23 mcg (5,000 unit) capsule cyanocobalamin (vitamin B-12) 1,000 mcg PO Q2D 01/05/20 01/20/23 1,000 mcg tablet,extended release desloratadine 5 mg tablet 5 mg PO DAILY PRN Allergy Symptoms 01/05/20 01/20/23 (Clarinex) multivitamin 1 tab PO DAILY 01/05/20 01/20/23 pramipexole 0.5 mg tablet (Mirapex) 0.5 mg PO DAILY 09/04/20 01/20/23 famotidine 20 mg tablet 20 mg PO BID PRN Indigestion 11/14/20 01/20/23 magnesium 250 mg tablet 250 mg PO DAILY 10/14/22 01/20/23 tramadol 50 mg tablet 50 mg PO BID 10/14/22 01/20/23 calcium citrate 250 mg PO .Three times weekly 05/01/23 Previous Rx's Medication Instructions Recorded apixaban 5 mg tablet (Eliquis) 5 mg PO BID #30 tabs 03/01/20 Allergies Allergy/AdvReac Type Severity Reaction Status Date / Time adhesive Allergy Unknown Verified 09/30/24 18:26 immune globulin,horse Allergy Unknown Verified 09/30/24 18:26 (equine) Iodinated Contrast Media Allergy Unknown Verified 09/30/24 18:26 povidone-iodine Allergy ALGY-Bliste Verified 09/30/24 18:26 r prochlorperazine Allergy Unknown Verified 09/30/24 18:26 [From Compazine] Aamcepi-CQX-MmZ Reductase Allergy Unknown Verified 09/30/24 18:26 Inhibitor narcotics Allergy ADR-Nausea Uncoded 09/30/24 18:26 propofol Allergy Unknown Uncoded 09/30/24 18:26 Review of Systems 2 Const: Denies: fever(s), chills, body aches or change in appetite ENMT: Denies: throat pain or dental pain Card: Denies: chest pain Resp: Denies: dyspnea GI: Reports: abdominal pain; Denies: nausea, vomiting or diarrhea : Denies: dysuria Musc: Denies: neck pain or back pain Skin/Breast: Denies: rash Neuro: Denies: headache(s) PFSH ED 2 PFSH: Medical History Racing heart beat Venous reflux Orthostatic hypotension after exercise Restless leg syndrome Osteoarthritis Breast cancer Hyperlipidemia HTN (hypertension) Atrial fibrillation Surgical History H/O mastectomy History of hysterectomy Hx of breast implants, bilateral History of cholecystectomy S/P ablation of atrial fibrillation Family History Father CAD (coronary artery disease) Sister Atrial septal defect with pacemaker Social History Smoking and tobacco/nicotine status: former use of tobacco/nicotine Alcohol intake: never Substance/Drug Use: never Physical Exam 2 Const: COMMON NORMALS: no acute distress, patient oriented x3 and healthy appearing HENMT: COMMON NORMALS: normocephalic and atraumatic HEAD & SCALP: n ormocephalic and atraumatic Neck/C-Spine: COMMON NORMALS: full ROM and supple Chest: COMMONS NORMALS: normal inspection of the chest Resp: COMMON NORMALS: normal respiratory effort, No retractions, No use of accessory muscles and clear to auscultation bilaterally AUSCULTATION: clear to auscultation bilaterally Cardio: COMMON NORMALS: regular rate and No murmurs present (Cardio) RATE: regular rate GI: COMMON NORMALS: Normal to inspection, nondistended, normoactive bowel sounds present, Soft to palpation and no masses PALPATION: Yes Soft to palpation OTHER: Tenderness over left upper quadrant Extremity: COMMON NORMALS: normal to inspection and full ROM Neuro: COMMON NORMALS: patient oriented x3, moves all extremities and no focal motor deficits Psych: COMMON NORMALS: mental status grossly normal, Normal thought process present and cooperative THOUGHT PROCESS: Normal thought process present Skin: COMMON NORMALS: no rashes or lesions noted and no wounds GENERAL SKIN EXAM: no rashes or lesions noted Course 2 Vital Signs: Vital signs: Vital Signs Temperature 98.1 F 09/30/24 18:20 Pulse Rate 97 09/30/24 18:20 Blood Pressure 159/82 09/30/24 20:58 Pulse Oximetry 99 09/30/24 20:58 Oxygen Delivery Me thod Room Air 09/30/24 20:58 MDM - Abdominal Pain Lab Data 09/30/24 19:13 09/30/24 19:13 Labs/Radiology: Radiology Impressions Abdomen/Pelvis CT 09/30/24 20:12 IMPRESSION: 1. Mildly prominent fluid in the stomach and small bowel, please correlate for a gastroenteritis. 2. Minimal edema about the mid sigmoid colon in the area of several diverticula may reflect a mild diverticulitis. 3. Right hip arthroplasty changes. 4. 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 5. Lingular atelectasis versus minimal infiltrate. 6. Emphysematous changes. 7. Moderate hiatal hernia. 8. Cholecystectomy. 9. Moderate constipation. 10. Diverticulosis without diverticulitis. Chest X-Ray 09/30/24 20:12 IMPRESSION: 1. Emphysematous changes. 2. Left lower lobe atelectasis versus infiltrate. 3. Cardiomegaly. Laboratory Results WBC 8.49 10^3/uL (3.29-11.43) 09/30/24 19:13 RBC 4.41 10^6/uL (3.85-5.65) 09/30/24 19:13 Hgb 12.60 g/dL (11.27-16.99) 09/30/24 19:13 Hct 40.3 % (36-47) 09/30/24 19:13 MCV 91.4 fl (85-98) 09/30/24 19:13 MCH 28.6 pg (27-33) 09/30/24 19:13 MCHC 31.3 g/dL (30-55) 09/30/24 19:13 RDW 12.8 % (12.1-15.1) 09/30/24 19:13 Plt Count 326 10^3/cmm (157-399) 09/30/24 19:13 MPV 9.7 fL (7.4-10.4) 09/30/24 19:13 Neut % (Auto) 66.6 % 09/30/24 19:13 Lymph % (Auto) 21.7 % 09/30/24 19:13 Millard % (Auto) 6.5 % 09/30/24 19:13 Eos % (Auto) 3.9 % 09/30/24 19:13 Baso % (Auto) 1.1 % 09/30/24 19:13 Neut # (Auto) 5.66 10^3/uL (1.8-7.7) 09/30/24 19:13 Lymph # (Auto) 1.8 10^3/uL (0.8-4.8) 09/30/24 19:13 Millard # (Auto) 0.6 10^3/uL (0.2-0.9) 09/30/24 19:13 Eos # (Auto) 0.3 10^3/uL (0.0-0.8) 09/30/24 19:13 Baso # (Auto) 0.1 10^3/uL (0.0-0.1) 09/30/24 19:13 Nucleated RBC % (auto) 0 % 09/30/24 19:13 Nucleated RBCs # 0.0 /100WBC 09/30/24 19:13 Sodium 138 mmol/L (136-145) 09/30/24 19:13 Potassium 4.0 mmol/L (3.5-5.1) 09/30/24 19:13 Chloride 100 mmol/L (98-107) 09/30/24 19:13 Carbon Dioxide 28 mmol/L (22-29) 09/30/24 19:13 Anion Gap 14.0 (5-19) 09/30/24 19:13 BUN 13 mg/dL (8-23) 09/30/24 19:13 Creatinine 1.0 mg/dL (0.5-0.9) H 09/30/24 19:13 GFR Calculation Not Reportable 09/30/24 19:13 Glucose 123 mg/dL (65-115) H 09/30/24 19:13 Calculated Osmolality 287 mOsm/kg (285-295) 09/30/24 19:13 Calcium 9.6 mg/dL (8.5-10.5) 09/30/24 19:13 Total Bilirubin 0.3 mg/dL (0.15-1.2) 09/30/24 19:13 AST 20 U/L (0-32) 09/30/24 19:13 ALT 13 U/L (0-33) 09/30/24 19:13 Alkaline Phosphatase 186 U/L (35-105) H 09/30/24 19:13 Total Protein 6.7 g/dL (6.6-8.7) 09/30/24 19:13 Albumin 4.1 g/dL (3.5-5.2) 09/30/24 19:13 Globulin 2.6 g/dL (1.3-4.6) 09/30/24 19:13 Lipase 28 U/L (13-60) 09/30/24 19:13 Discharge Plan Discharge Patient Disposition: Home Clinical Impression: Rib pain Condition: Stable Prescriptions: No Action Eliquis 5 mg tablet 5 mg PO BID Qty: 30 6RF Hold Instructions: Resume on 11/09/22. May start taking the medicine tomorrow evening pramipexole [Mirapex] 0.5 mg tablet 0.5 mg PO DAILY desloratadine [Clarinex] 5 mg tablet 5 mg PO DAILY PRN (Reason: Allergy Symptoms) multivitamin Tablet 1 tab PO DAILY cyanocobalamin (vitamin B-12) 1,000 mcg tablet extended release 1,000 mcg PO Q2D cholecalciferol (vitamin D3) 125 mcg (5,000 unit) capsule 5,000 unit PO DAILY famotidine 20 mg tablet 20 mg PO BID PRN (Reason: Indigestion) tramadol 50 mg tablet 50 mg PO BID magnesium 250 mg tablet 250 mg PO DAILY calcium citrate 250 mg calcium tablet 250 mg PO .Three times weekly Discharge Orders: Discharge ED (Routine); Ordered 09/30/24 Ordered By: Key Parnell Referrals: Fraheen Smith MD [Primary Care Provider] - Discharge Diet: Usual diet Discharge Activity: Increase activity as tolerated Patient Instructions: Opioid Safety, Pain Management Activity Restrictions/Additional Instructions: Thank you for choosing [facility] for your healthcare needs today. Please realize this is an emergency room and that we are providing you with a medical screening exam and this may not be complete and all inclusive of all the testing and or work up that you may need to determine your ailment or severity of your illness. You have been screened and evaluated and felt safe for discharge. Health conditions do change or evolve sometimes and as such it is important that you follow up with your Primary Doctor to be re checked, 3-5 days is a general good time frame for follow up. You are always welcome to return to the ED for re assessment if your symptoms are worsening or you have new concerns Coding Level of Care Code ED Mail Order Clerk for Chg Fwd Documented by User: Key Parnell MD 09/30/24 22:27 HPI - Abdominal Pain 2 General: Chief Complaint: Abdominal Pain Stated Complaint: had a pop and spasms in upper abd Time Seen by Provider: 09/30/24 20:05 Related Data Home Medications Medication Instructions Recorded Confirmed cholecalciferol (vitamin D3) 125 5,000 unit PO DAILY 01/05/20 01/20/23 mcg (5,000 unit) capsule cyanocobalamin (vitamin B-12) 1,000 mcg PO Q2D 01/05/20 01/20/23 1,000 mcg tablet,extended release desloratadine 5 mg tablet 5 mg PO DAILY PRN Allergy Symptoms 01/05/20 01/20/23 (Clarinex) multivitamin 1 tab PO DAILY 01/05/20 01/20/23 pramipexole 0.5 mg tablet (Mirapex) 0.5 mg PO DAILY 09/04/20 01/20/23 famotidine 20 mg tablet 20 mg PO BID PRN Indigestion 11/14/20 01/20/23 magnesium 250 mg tablet 250 mg PO DAILY 10/14/22 01/20/23 tramadol 50 mg tablet 50 mg PO BID 10/14/22 01/20/23 calcium citrate 250 mg PO .Three times weekly 05/01/23 Previous Rx's Medication Instructions Recorded apixaban 5 mg tablet (Eliquis) 5 mg PO BID #30 tabs 03/01/20 Allergies Allergy/AdvReac Type Severity Reaction Status Date / Time adhesive Allergy Unknown Verified 09/30/24 18:26 immune globulin,horse Allergy Unknown Verified 09/30/24 18:26 (equine) Iodinated Contrast Media Allergy Unknown Verified 09/30/24 18:26 povidone-iodine Allergy ALGY-Bliste Verified 09/30/24 18:26 r prochlorperazine Allergy Unknown Verified 09/30/24 18:26 [From Compazine] Vtbmjdx-NFX-RuV Reductase Allergy Unknown Verified 09/30/24 18:26 Inhibitor narcotics Allergy ADR-Nausea Uncoded 09/30/24 18:26 propofol Allergy Unknown Uncoded 09/30/24 18:26 PFSH ED 2 PFSH: Medical History Racing heart beat Venous reflux Orthostatic hypotension after exercise Restless leg syndrome Osteoarthritis Breast cancer Hyperlipidemia HTN (hypertension) Atrial fibrillation Surgical History H/O mastectomy History of hysterectomy Hx of breast implants, bilateral History of cholecystectomy S/P ablation of atrial fibrillation Family History Father CAD (coronary artery disease) Sister Atrial septal defect with pacemaker Social History Smoking and tobacco/nicotine status: former use of tobacco/nicotine Alcohol intake: never Substance/Drug Use: never Course 2 Vital Signs: Vital signs: Vital Signs Temperature 98.1 F 09/30/24 18:20 Pulse Rate 97 09/30/24 18:20 Blood Pressure 159/82 09/30/24 20:58 Pulse Oximetry 99 09/30/24 20:58 Oxygen Delivery Mi thod Room Air 09/30/24 20:58 MDM - Abdominal Pain Medical Decision Making Patient care was transitioned to ak at shift change. CT results are pending. CT results are not very revealing. She has got diverticuli with no definite diverticulitis. No evidence of any rib fractures or anything to explain her pain at this time. I discussed these findings with her. She was quite unhappy that I did not have a definite answer for what was causing her pain. Lab Data 09/30/24 19:13 09/30/24 19:13 Labs/Radiology: Radiology Impressions Abdomen/Pelvis CT 09/30/24 20:12 IMPRESSION: 1. Mildly prominent fluid in the stomach and small bowel, please correlate for a gastroenteritis. 2. Minimal edema about the mid sigmoid colon in the area of several diverticula may reflect a mild diverticulitis. 3. Right hip arthroplasty changes. 4. 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 5. Lingular atelectasis versus minimal infiltrate. 6. Emphysematous changes. 7. Moderate hiatal hernia. 8. Cholecystectomy. 9. Moderate constipation. 10. Diverticulosis without diverticulitis. Chest X-Ray 09/30/24 20:12 IMPRESSION: 1. Emphysematous changes. 2. Left lower lobe atelectasis versus infiltrate. 3. Cardiomegaly. Laboratory Results WBC 8.49 10^3/uL (3.29-11.43) 09/30/24 19:13 RBC 4.41 10^6/uL (3.85-5.65) 09/30/24 19:13 Hgb 12.60 g/dL (11.27-16.99) 09/30/24 19:13 Hct 40.3 % (36-47) 09/30/24 19:13 MCV 91.4 fl (85-98) 09/30/24 19:13 MCH 28.6 pg (27-33) 09/30/24 19:13 MCHC 31.3 g/dL (30-55) 09/30/24 19:13 RDW 12.8 % (12.1-15.1) 09/30/24 19:13 Plt Count 326 10^3/cmm (157-399) 09/30/24 19:13 MPV 9.7 fL (7.4-10.4) 09/30/24 19:13 Neut % (Auto) 66.6 % 09/30/24 19:13 Lymph % (Auto) 21.7 % 09/30/24 19:13 Millard % (Auto) 6.5 % 09/30/24 19:13 Eos % (Auto) 3.9 % 09/30/24 19:13 Baso % (Auto) 1.1 % 09/30/24 19:13 Neut # (Auto) 5.66 10^3/uL (1.8-7.7) 09/30/24 19:13 Lymph # (Auto) 1.8 10^3/uL (0.8-4.8) 09/30/24 19:13 Millard # (Auto) 0.6 10^3/uL (0.2-0.9) 09/30/24 19:13 Eos # (Auto) 0.3 10^3/uL (0.0-0.8) 09/30/24 19:13 Baso # (Auto) 0.1 10^3/uL (0.0-0.1) 09/30/24 19:13 Nucleated RBC % (auto) 0 % 09/30/24 19:13 Nucleated RBCs # 0.0 /100WBC 09/30/24 19:13 Sodium 138 mmol/L (136-145) 09/30/24 19:13 Potassium 4.0 mmol/L (3.5-5.1) 09/30/24 19:13 Chloride 100 mmol/L (98-107) 09/30/24 19:13 Carbon Dioxide 28 mmol/L (22-29) 09/30/24 19:13 Anion Gap 14.0 (5-19) 09/30/24 19:13 BUN 13 mg/dL (8-23) 09/30/24 19:13 Creatinine 1.0 mg/dL (0.5-0.9) H 09/30/24 19:13 GFR Calculation Not Reportable 09/30/24 19:13 Glucose 123 mg/dL (65-115) H 09/30/24 19:13 Calculated Osmolality 287 mOsm/kg (285-295) 09/30/24 19:13 Calcium 9.6 mg/dL (8.5-10.5) 09/30/24 19:13 Total Bilirubin 0.3 mg/dL (0.15-1.2) 09/30/24 19:13 AST 20 U/L (0-32) 09/30/24 19:13 ALT 13 U/L (0-33) 09/30/24 19:13 Alkaline Phosphatase 186 U/L (35-105) H 09/30/24 19:13 Total Protein 6.7 g/dL (6.6-8.7) 09/30/24 19:13 Albumin 4.1 g/dL (3.5-5.2) 09/30/24 19:13 Globulin 2.6 g/dL (1.3-4.6) 09/30/24 19:13 Lipase 28 U/L (13-60) 09/30/24 19:13 All radiology interpretation(s) finalized by discharge Discharge Plan Discharge Patient Disposition: Home Clinical Impression: Rib pain Condition: Stable Prescriptions: No Action Eliquis 5 mg tablet 5 mg PO BID Qty: 30 6RF Hold Instructions: Resume on 11/09/22. May start taking the medicine tomorrow evening pramipexole [Mirapex] 0.5 mg tablet 0.5 mg PO DAILY desloratadine [Clarinex] 5 mg tablet 5 mg PO DAILY PRN (Reason: Allergy Symptoms) multivitamin Tablet 1 tab PO DAILY cyanocobalamin (vitamin B-12) 1,000 mcg tablet extended release 1,000 mcg PO Q2D cholecalciferol (vitamin D3) 125 mcg (5,000 unit) capsule 5,000 unit PO DAILY famotidine 20 mg tablet 20 mg PO BID PRN (Reason: Indigestion) tramadol 50 mg tablet 50 mg PO BID magnesium 250 mg tablet 250 mg PO DAILY calcium citrate 250 mg calcium tablet 250 mg PO .Three times weekly Discharge Orders: Discharge ED (Routine); Ordered 09/30/24 Ordered By: Key Parnell Referrals: Farheen Smith MD [Primary Care Provider] - Discharge Diet: Usual diet Discharge Activity: Increase activity as tolerated Patient Instructions: Opioid Safety, Pain Management Activity Restrictions/Additional Instructions: Thank you for choosing [facility] for your healthcare needs today. Please realize this is an emergency room and that we are providing you with a medical screening exam and this may not be complete and all inclusive of all the testing and or work up that you may need to determine your ailment or severity of your illness. You have been screened and evaluated and felt safe for discharge. Health conditions do change or evolve sometimes and as such it is important that you follow up with your Primary Doctor to be re checked, 3-5 days is a general good time frame for follow up. You are always welcome to return to the ED for re assessment if your symptoms are worsening or you have new concerns Coding Level of Care Code ED Mail Order Clerk for Maris Brar
[2024-09-30 20:58] VITALS: BP 159/82; O2SAT 99
[2024-09-30 22:33] VITALS: BP 163/94; PULSE 96; O2SAT 96
== END 2024-09-30 22:34 | disposition home or self-care (01) ==
PROVIDERS: Emergency Medicine; Emergency Provider Emergency Medicine; PCP Family Medicine
DX: R07.81 Pleurodynia (principal); Z79.01 Long term (current) use of anticoagulants; Z87.891 Personal history of nicotine dependence; C50.919 Malignant neoplasm of unspecified site of unspecified female breast; E78.5 Hyperlipidemia, unspecified; I10 Essential (primary) hypertension
CPT/HCPCS: 36415; 71045; 74176; 80053; 83690; 85025; 99284

== ENCOUNTER 2024-10-14 10:52 | Outpatient (CLI) | payer MEDICARE, BC, SELFPAY ==
--- NOTE | 2024-10-14 10:57 | XR_ITS ---
WS: [id number] Exam: XR ribs LT mn 3V w CXR1V [id number] Date/Time of Exam: 10/14/2024 11:11 AM Reason For Exam: Left sided rib pain No acute LEFT rib fracture. The lungs are fully expanded and clear. Numerous surgical clips along the LEFT axilla. Battery pack superimposes the LEFT heart border. No pleural or pulmonary reactive arellano es. XR/XR ribs LT mn 3V w CXR1V [id number] IMPRESSION: 1. No acute LEFT rib fracture or pneumothorax. 2. No acute cardiopulmonary finding.
== END 2024-10-14 10:53 | disposition home or self-care (01) ==
LOC: RAD 10:54
PROVIDERS: PCP Family Medicine; Visit Provider Family Medicine
DX: R07.81 Pleurodynia (principal)
CPT/HCPCS: 71101

== ENCOUNTER 2025-06-29 12:34 | Outpatient (CLI) | payer MEDICARE, BC, SELFPAY ==
--- NOTE | 2025-06-29 13:00 | CTR_ITS ---
PROCEDURE INFORMATION: Exam: CT Cervical Spine Without Contrast Exam date and time: 06/29/2025 1:00 PM Age: 74 years old Clinical indication: Radicular pain (radiculopathy); Cervical region; HX of breast cancer. Pain at base of skull down into neck on right side since last with numbness at base into neck; Additional info: Cervical spine radiculopathy TECHNIQUE: Imaging protocol: Computed tomography of the cervical spine without contrast. Radiation optimization: All CT scans at this facility use at least one of these dose optimization techniques: automated exposure control; mA and/or kV adjustment per patient size (includes targeted exams where dose is matched to clinical indication); or iterative reconstruction. COMPARISON: [place] bone scan whole body* [id number] 11/28/2020 7:42 AM RADIATION DOSE METRICS: Total DLP (mGy-cm): 144.57 FINDINGS: Bones: No acute fracture. Normal alignment. Straightening of normal cervical lordosis. Bony ankylosis of left C3 and C4 facets and right C3, C4, and C5 facets. Chronic multilevel degenerative changes of the cervical spine with loss of intervertebral disc height, uncovertebral and facet joint hypertrophy, and posterior disc osteophyte complexes contributing to varying degrees of multilevel neural foraminal stenosis. Mild right neural foraminal stenosis at C2-C3. Moderate right and mild left neural foraminal stenosis at C3-C4. Mild bilateral neural foraminal stenosis at C4-C5. Moderate bilateral neural foraminal stenosis at C5-C6. Severe right and mild left neural foraminal stenosis at C6-C7. Mild spinal canal stenosis at C5-C6 and C6-C7. No high-grade spinal canal stenosis. Lungs: Lung apices are normal. Soft tissues: Unremarkable. CT/CT cervical spin wo con* [id number] IMPRESSION: 1. No acute fracture. 2. Multilevel chronic degenerative changes of the spine, as above, with severe right neural foraminal stenosis at C6-C7. 3. No high-grade spinal canal stenosis.
== END 2025-06-29 12:35 | disposition home or self-care (01) ==
LOC: RAD 12:37
PROVIDERS: PCP Family Medicine; Visit Provider Emergency Medicine
DX: M54.12 Radiculopathy, cervical region (principal); M50.321 Other cervical disc degeneration at C4-C5 level; M50.323 Other cervical disc degeneration at C6-C7 level; M48.02 Spinal stenosis, cervical region; M43.26 Fusion of spine, lumbar region
CPT/HCPCS: 72125

== ENCOUNTER → 2025-07-04 15:39 | Outpatient (BNVA) | payer MEDICARE, BC, SELFPAY | PROVIDERS: PCP Family Medicine; Visit Provider Registered Nurse Neonatal Intensive Care | DX: S52.124A Nondisplaced fracture of head of right radius, initial encounter for closed fracture (principal); X58.XXXA Exposure to other specified factors, initial encounter | CPT/HCPCS: 73090 ==

== ENCOUNTER → 2025-07-07 08:31 | Outpatient (BNVA) | payer MEDICARE, BC, SELFPAY | PROVIDERS: PCP Family Medicine; Visit Provider Orthopaedic Surgery | DX: S42.401A Unspecified fracture of lower end of right humerus, initial encounter for closed fracture (principal); M54.12 Radiculopathy, cervical region; X58.XXXA Exposure to other specified factors, initial encounter | CPT/HCPCS: 73080; 99203 ==

== ENCOUNTER 2025-07-16 11:24 | Emergency (ER) | payer MEDICARE, BC, SELFPAY ==
--- OUTSIDE RECORDS SUMMARY | 2025-07-16 11:28 | XMS_ITS | Patient Health Record ---
Author Organization [employer] Super[employer] [facility] Address [address] [place] [address] Care Team Providers Care Salt Grinder Name Role Phone Aliyah Saez Primary Care Provider Gaurav Mora Unavailable [phone] Allergies Allergen (clinical drug ingredient) Drug/Non Drug Allergy documented on EMR Reaction Allergy Type Onset Date Status Compazine Unknown Drug Allergy Active Statin Drugs Unknown Drug Allergy Acti ve Codeine Phosphate Unknown Drug Allergy Active contrast dye (uncoded) Unknown Allergy Active anesthesia/sedation (uncoded) Unknown Allergy Active Reason For Referral No Information Medications Medication SIG (Take, Route, Frequency, Duration) Notes Start Date End Date Status Claritin 10 MG 1 tablet Orally Once a day for 30 day(s) Active Eliquis 5 MG 1 tablet Orally twic e a day for 90 days Active Magnesium 80 MG 1 tablet Orally Once a day 85 mg Active Calcium 500 MG 1 tablet Orally Thre e times a week Active Mirapex 0.5 MG 1 tablet before bedt kristi Orally Once a day Active traMADol HCl 50 MG 1 tablet as needed O rally every 6 hrs Active Multivitamin Adult - Orally Active Vitamin B 12 Active Vitamin D3 5000 UNIT Orally Active Medical Compression Stockings - as directed 11/19/2017 Active Metoprolol Succinate ER 25 MG 1 tablet Orally Once a day for 90 days Active Problems Problem Type SNOMED Code ICD Code Onset Dates Problem Status W/U Status Risk Notes Problem 32717580 Essential (primary) hypertension (I10) Active confirmed Problem 4062368 SVT (supraventricula r tachycardia) (I47.1) Active confirmed Problem 08123134 LVH (left ventricular hypertrophy) (I51.7) Active confirmed Problem 343687904 PVD (peripheral vascular disease) (I73.9) Active confirmed Problem Atrial fibrillation (83784622) Atrial fibrillation (I48.91) Active confirmed Problem 64062879 Venous insufficiency (I87.2) Active confirmed Problem 81719823 Chronic fatigue (R53.82) Active confirmed Problem Hyperlipidaemia (62588742) HLD (hyperlipidemia) (E78.5) Active confirmed Problem Restless legs (58427647) RLS (restless legs syndrome) (G25.81) Active confirmed Plan Of Treatment Pending Test Test Name Order Date Echocardiogram, Complete with Doppler EKG 11/14/2021 EKG 09/30/2016 EKG 03/26/2021 Lower Extremity Venous Duplex Ultrasound - Bilateral 03/26/2021 Insurance Providers Payer Name Payer Address Payer Phone Subscriber Number Group Number Insured Name Patient Relationship to Insured Coverage Start Date Coverage End Date Medicare Part B [address] [place] [phone] [id number] Kaila Randolph Self - patient is the insured [facility] [address] [place] [address] [id number] Kaila Randolph Self - patient is the insured Medical (General) History Medical History History ICD Code Hypertension I10 Afib I48.91 HLD (hyperlipidemia) E78.5 RLS (restless legs syndrome) G25.81 Surgical History Surgery Date(Month/Year) tonsillectomy 1982 bilateral mastectomy 1982 breast reconstruction 1984 cholecystectomy 2003 cardiac catheterization 2008 cataract removal 2013 Cardioversion 2015 hysterectomy 1982
--- OUTSIDE RECORDS SUMMARY | 2025-07-16 11:28 | XMS_ITS | Clinical Summary ---
Author Organization [facility] Address [address] [place] [address] Phone Care Team Providers Care Turner And Former Automatic Name Role Phone Unavailable Primary Care Provider Unavailabl e Allergies Active Allergy Reactions Criticality Noted Date Comments Adhesive Hives High 12/25/2022 blisters Codeine Nausea and Vomiting Low 05/27/2024 Hydrocodone Nausea and Vomiting Low 05/27/2024 Immune Globulin,Horse (Equine) Hives High 12/25/2022 Joint pain, fever, hives Iodinated Contrast Media Hives High 12/25/2022 Meperidine Nausea and Vomiting Low 12/25/2022 Povidone-Iodine Rash Low 12/25/2022 Prochlorperazine Hives High 12/25/2022 J oint pain, fever, hives Dskmqvl-Mgs-Bmi Reductase Inhibitors Other (See Comments) 12/25/2022 Elevated liver enzyme, ten times the normal value Medications apixaban (Eliquis) 5 mg tablet Take 5 mg by mouth 2 times daily. Active loteprednol (LOTEMAX) 0.5 % suspension Administer 1 Drop in both eyes 3 times daily. Active desloratadine (CLARINEX) 5 mg tablet Take 5 mg by mouth 1 time daily as needed for Allergies. Active pramipexole (MIRAPEX) 0.5 mg tablet Take 1.5 mg by mouth daily at bedtime. Active metoprolol tartrate (LOPRESSOR) 25 mg tablet Take 12.5 mg by mouth daily at bedtime. Active CHOLECALCIFEROL, VITAMIN D3, ORAL Take by mouth daily. Active psyllium (METAMUCIL) Packet Take 1 Packet by mouth daily. Active metroNIDAZOLE (METROCREAM) 0.75 % Cream Apply to affected area 1 time daily as needed. Active oxyCODONE (ROXICODONE) 5 mg tabletIndication s:Status post total replacement of right hip Take 1 Tablet (5 mg) by mouth every 4 hours as needed for Pain, Severe. No more than 6 tabs daily. Max Daily Amount: 30 mg 42 Tablet 4 Active traMADoL (ULTRAM) 50 mg tabletIndication s:Status post total replacement of right hip Take 1 Tablet (50 mg) by mouth every 6 hours as needed for Pain, Moderate. 28 Tablet 4 Active polyethylene glycol 3350 (Miralax) 17 gram/dose Powder Take 1 Scoop (17 Grams) by mouth daily. Dissolve in 8 ounces of fluid and drink entire liquid 527 Gram 4 Active Active Problems Problem Noted Date Diagnosed Date Status post total replacement of right hip 06/17 Preoperative general physical examination 2023 Obstructive sleep apnea 05/27/2024 Primary hypertension 05/27/2024 Dyslipidemia 05/27/2024 AF (atrial fibrillation) 05/27/2024 Atrial tachycardia 05/27/2024 History of breast cancer 05/27/2024 Gastritis 05/27/2024 Chronic allergic rhinitis 05/27/2024 Restless leg syndrome 05/27/2024 Primary osteoarthritis of right hip 05/27/2024 Encounters Date Type Department Care Team Description 05/18/2025 External Device Data ST[facility] ABSTRACTION Provider, Abstract 05/18/2025 External Device Data [facility] ABSTRACTION Provider, Abstract 04/29/2025 External Device Data Initial Department [address] [place]NIGHT: [place] [address] [facility] [place] 04/20/2025 External Device Data [facility] ABSTRACTION Provider, Abstract from Last 3 Months Family History Medical History Relation Name Comments Heart Attack Father Heart Attack Sister Yesica Stroke Sister Yesica Relation Name Status Comments Father Sister Yesica Social History Tobacco Use Types Packs/Day Years Used Date Smoking Tobacco: Never Smokeless Tobacco: Never Tobacco Cessation:Counseling Given: Not Answered Alcohol Use Standard Drinks/Week Comments Never 0 (1 standard drink = 0.6 oz pur e alcohol) Feeling Safe Answer Date Recorded Are you in a relationship wi th someone who hurts you emotionally and/or physically? No 06/17/2024 Comments No Sex and Gender Information Value Date Recorded Sex Assigned at Female 06/12/2024 9:49 AM CDT Legal Sex Female 9:26 AM CDT Gender Identity Female 06/12/2024 9:49 AM CDT Sexual Orientation Not on file Last Filed Vital Signs Vital Sign Reading Time Taken Comments Blood Pressure 110/58 07/15/2024 9:38 AM CDT Pulse 110 06/18/2024 1:16 PM CDT Temperature 37.5 C (99.5 F) 06/18/2024 1:16 PM CDT Respiratory Rate 14 06/18/2024 1:16 PM CDT Oxygen Saturation 96% 06/18/2024 1:16 PM CDT Inhaled Oxygen Concentration - - Weight 60.3 kg (133 lb) 07/15/2024 9:38 AM CDT Height 158.8 cm (5' 2.5 ) 07/15/2024 9:38 AM CDT Body Mass Index 23.94 07/15/2024 9:38 AM CDT Plan of Treatment Upcoming Encounters Date Type Department Care Team (Late st Contact Info) Description 07/19/2025 11:20 AM CDT Office Visit [facility] [address] [place] [id number] Fiorella Sears, FRANCINE [address] [place] [phone] 09/12/2025 8:20 AM DIESEL ENGINE OPERATOR [facility] Eleuterio Abraham [address] [place] [address] Jing Santoyo MD [address] [place] [address] Health Maintenance Due Date Last Done Comments DTAP/TDAP/TD VACCINES (1 - Tdap) 1967 PNEUMOCOCCAL VACCINE 50+ YEARS (1 of 1 - PCV) 09/25/19 98 ZOSTER VACCINE (1 of 2) 1998 RSV VACCINE (60+ or ) (1 - 1-dose 75+ series) 2023 INFLUENZA VACCINE (#1) 2025 OSTEOPOROSIS SCREENING 12/04/2028 12/04/2023 Medical Devices Implanted Type Area Electrical Estimator Device Identifier Shelf Expiration Date Model / Serial / Lot Shell Emphasys 48mm 3hl Acet Cmntls 4710-48-300 - [id number] Implanted:Qty: 1 on 06/17/2024 by Thong Colin MD at [facility] Hip Right: Hip [employer] 05/02/2034 4710-48-300 / / [id number] Liner Emphasys Poly 36q02yd Acet Aox Neutral 4722-50-036 - [id number] Implanted:Qty: 1 on 06/17/2024 by Thong Colin MD at [facility] Hip Right: Hip [employer] 05/02/2029 4722-48-036 / / [id number] Stem Fem Actis Colr Std Sz3 1010-11-030 - [id number] Implanted:Qty: 1 on 06/17/2024 by Thong Colin MD at [facility] Hip Right: Hip [employer] [id number] 07/03/2033 1010-11-030 / / [id number] Head Fem Art/Sen Cer Sz36 1365-36-320 - [id number] Implanted:Qty: 1 on 06/17/2024 by Thong Colin MD at [facility] Hip Right: Hip [employer] [place] [id number] 03/02/2029 [id number] / / [id number] Procedures Procedure Name Priority Date/Time Associated Diagnosis Comments XR DEXA BONE DENSITY AXIAL 1 OR MORE SITES Routine 12/04/2023 2:32 PM DIESEL ENGINE OPERATOR from Last 3 Months or Most Recently Relevant to Health Maintenance Results * XR DEXA BONE DENSITY AXIAL 1 OR MORE SITES (12/04/2023 2:32 PM DIESEL ENGINE OPERATOR) Anatomical Region Laterality Modality Other us Abstract Provider DIAGNOSTIC IMAGING ORDERABLES Final Result from Last 3 Months or Most Recently Relevant to Health Maintenance Insurance [id number] [id number] MEDICARE PART A AND B BCBS SUPP Advance Directives For more information, please contact: [phone] Documents on File Type Date Recorded Patient Bilingual Patient Support Caseworker Expl anation Advance Directive Living Will 05/27/2024 10:09 AM Advance Directive Living Will Care Teams Turner And Former Automatic Relationship Specialty Start Date End Date Farheen Torres MD [address] [address] Referring Physician 03/18/25
[2025-07-16 11:54] VITALS: BP 147/86; PULSE 106; RESP 20; TEMP 36.9; O2SAT 96
== END 2025-07-16 12:00 | disposition left against medical advice (07) ==
LOC: ER 11:26
PROVIDERS: Emergency Provider Emergency Medicine; PCP Family Medicine
DX: Z53.21 Procedure and treatment not carried out due to patient leaving prior to being seen by health care provider (principal)

== ENCOUNTER 2025-07-18 11:29 | Outpatient (CLI) | payer MEDICARE, BC, SELFPAY ==
--- NOTE | 2025-07-18 11:34 | XR_ITS ---
WS: [id number] XR wrist RT min 3V* [id number] REASON FOR EXAM: acute right wrist pain FINDINGS: No fracture or focal bone lesion. Joint spaces of the right wrist are intact and well preserved. Normal alignment of the carpal bones. Significant osteoarthritis in the base of the thumb. XR/XR wrist RT min 3V* [id number] IMPRESSION: No acute abnormality in the wrist. Significant osteoarthritis of the thumb.
== END 2025-07-18 11:30 | disposition home or self-care (01) ==
LOC: RAD 11:31
PROVIDERS: PCP Family Medicine; Visit Provider Family Medicine
DX: M25.531 Pain in right wrist (principal); M18.11 Unilateral primary osteoarthritis of first carpometacarpal joint, right hand
CPT/HCPCS: 73110

== ENCOUNTER 2025-07-20 15:13 | Outpatient (CLI) | payer MEDICARE, BC, SELFPAY ==
--- NOTE | 2025-07-20 15:30 | MR_ITS ---
WS: [id number] MRI HEAD WITH CONTRAST TECHNIQUE: Sagittal T1, T2 axial, T2 axial FLAIR, axial susceptibility weighted imaging, axial diffusion weighted images, and coronal T2 images were obtained. Pre and post-T1 axial and post T1 coronal images. ADC and FSPGR images. CLINICAL INFORMATION: headache, dizziness, vision changes COMPARISON: None. FINDINGS: No evidence of restricted diffusion to suggest acute ischemia. Moderate small vessel changes. Mild parenchymal volume loss. Mild small vessel changes in the issa. Normal vascular flow voids at the skull base. No extra-axial fluid collections. No hemosiderin on the susceptibly weighted images. Normal optic chiasm and pituitary infundibulum. No abnormal gadolinium enhancement MR/MR head wo/w con [id number] IMPRESSION: 1. No evidence of restricted diffusion to suggest acute ischemia. 2. Moderate small vessel changes with mild parenchymal volume loss. 3. Small vessel changes in the issa. 4. No hemosiderin on the susceptibility weighted images. 5. No abnormal gadolinium enhancement.
--- NOTE | 2025-07-20 16:15 | MR_ITS ---
WS: [id number] MRA HEAD TECHNIQUE: Axial 3-D TOF images obtained with axial images and axial, sagittal, and coronal 2-D reformatted images. CLINICAL INFORMATION: headache, vision changes, dizziness COMPARISON: None. FINDINGS: Distal vertebrals are patent. Basilar artery is patent. Normal vascularity to the OPTICAL GOODS WORKER territory bilaterally. Both ICAs are patent at the skull base. Azygos CHRISTA. Hypoplastic LEFT A1 segment. Normal vascularity to the CHRISTA and MCA territories bilaterally. MR/MR angio head wo con [id number] IMPRESSION: 1. Mild intracranial atheromatous disease 2. Hypoplastic LEFT A1 segment.
--- NOTE | 2025-07-20 16:30 | MR_ITS ---
WS: [id number] MRI CERVICAL SPINE NONCONTRAST TECHNIQUE: Sagittal T1, T2 and STIR imaging. Axial T2, gradient, and fiesta imaging. CLINICAL INFORMATION: Neck pain and numbness COMPARISON: Outside study MRI 01/19/2025. No report available. FINDINGS: Straightening of the normal cervical lordosis. Alignment is unchanged since the prior outside study. Degenerative arthritis at the C1-2 articulation with pannus formation. Disc narrowing worse at C5-C6 and C6-C7 with small disc osteophyte protrusions. Cord signal is normal. C2-C3: Moderate RIGHT facet arthropathy with facet synovitis and periarticular edema. Moderate RIGHT foraminal narrowing.. C3-C4: Mild disc bulging with a tiny central protrusion. Slight effacement of the ventral thecal sac. Mild LEFT foraminal narrowing. Mild facet arthropathy. C4-C5: Disc osteophyte complex with endplate ridging. Moderate RIGHT facet arthropathy. Mild RIGHT foraminal narrowing. Spinal canal is patent. C5-C6: Disc osteophyte complex with mild to moderate central canal stenosis and slight contact of the cervical cord. Uncovertebral joint hypertrophy. Severe LEFT and moderate RIGHT bony foraminal narrowing. C6-C7: Disc osteophyte complex with mild to moderate central canal stenosis. Slight indentation of the cervical cord. Severe RIGHT bony foraminal narrowing. Uncovertebral joint hypertrophy. Moderate facet arthropathy. C7-T1: Slight anterolisthesis C7 on T1. Spinal canal and foramen are patent. MR/MR cervical spin wo con* [id number] IMPRESSION: 1. Straightening of the normal cervical lordosis. 2. Mild to moderate central canal stenosis C5-C6 and C6-C7 with central disc o steophyte protrusions and slight indentation of the cervical cord. 3. Severe LEFT C5-C6 and severe RIGHT C6-7 bony foraminal narrowing. 4. RIGHT C2-3 facet synovitis with periarticular edema and a tiny facet effusi on.
[2025-07-20] MEDS: gadobenate dimeglumine 20 mL vial 14 ML IV (17:03)
== END 2025-07-20 15:14 | disposition home or self-care (01) ==
LOC: RAD 15:14
PROVIDERS: PCP Family Medicine; Visit Provider Family Medicine
DX: R42 Dizziness and giddiness (principal); M48.02 Spinal stenosis, cervical region; M47.892 Other spondylosis, cervical region; M50.11 Cervical disc disorder with radiculopathy, high cervical region; M46.22 Osteomyelitis of vertebra, cervical region; M50.221 Other cervical disc displacement at C4-C5 level; M50.321 Other cervical disc degeneration at C4-C5 level; M47.812 Spondylosis without myelopathy or radiculopathy, cervical region; M50.022 Cervical disc disorder at C5-C6 level with myelopathy; M99.61 Osseous and subluxation stenosis of intervertebral foramina of cervical region; M43.12 Spondylolisthesis, cervical region; M50.23 Other cervical disc displacement, cervicothoracic region; I67.82 Cerebral ischemia
CPT/HCPCS: 70544; 70553; 72141

== ENCOUNTER → 2025-07-28 08:46 | Outpatient (BNVA) | payer MEDICARE, BC, SELFPAY | PROVIDERS: PCP Family Medicine; Visit Provider Orthopaedic Surgery | DX: M54.12 Radiculopathy, cervical region (principal) | CPT/HCPCS: 72050; 73080; 99213 ==